=== PATIENT | female | born 1985 | race Caucasian/White ===

== ENCOUNTER 2016-03-22 21:26 | Emergency (ER) | payer MEDICAID ==
[2016-03-23] MEDS ORDERED: HYDROmorphone 1 MG/ML SYRINGE IVP STA (00:31)
[2016-03-23] MEDS ORDERED: HYDROmorphone 1 MG/ML SYRINGE ONE (00:34)
[2016-03-23] MEDS ORDERED: IOPAMIDOL-300 100 ML VIAL IVP ONE (00:37)
[2016-03-23] MEDS ORDERED: HYDROcod/ACETAM 5/325 MG TABLET ONE ×2 (02:00)
[2016-03-23] MEDS ORDERED: HYDROcod/ACETAM 5/325 MG TABLET PO STA (02:00)
== END 2016-03-23 02:18 | disposition home or self-care (01) ==
DX: R10.84 Generalized abdominal pain (principal)
CPT/HCPCS: 36415; 74177; 80053; 81003; 81025; 83690; 85025; 96374; 99283; 99284; A9270; J1170; Q9967

== ENCOUNTER 2016-10-25 20:03 | Emergency (ER) | payer MEDICAID ==
--- NOTE | 2016-10-25 21:11 | XRAY Preliminary Report ---
Exam: XR Ankle 3 View LT IMPRESSION: No bony abnormality. [facility] SITE ID: [id number]
--- NOTE | 2016-10-25 21:14 | XRAY Report ---
EXAM: LEFT ANKLE RADIOGRAPHY EXAM DATE: 10/25/2016 08:41 PM. CLINICAL HISTORY: Rolled ankle yesterday. Increased pain and tenderness with walking. COMPARISON: None. TECHNIQUE: 3 views. FINDINGS: Bones: Normal. No fractures or bone lesions. Joints: Normal. No effusion. No subluxations. The ankle mortise is normally aligned. Soft Tissues: Lateral soft tissue swelling. IMPRESSION: No bony abnormality. [facility] Referring Provider Line: [phone] SITE ID: [id number]
--- NOTE | 2016-10-25 22:46 | ED Physician Documentation ---
PD HPI LOWER EXT INJURY - Stated complaint Stated Complaint: STACIE FOOT INJ - Chief complaint Chief Complaint: General - History obtained from History obtained from: Patient - History of Present Illness PD HPI LOW EXT INJURY LOCATION: Right, Left, Ankle (left), Foot (right) Type of injury: Twist (she was wearing heels and it got caught in grating in the sidewalk and she twisted the left ankle and twisted the right foot as she then fell to the side. Both hurt and has been hard to walk on. She had borrowed crutches and was hurting more to put weight on the foot. Denies other injury.) Where injury occurred: Street (was going out in [place] Tuesday night.) Timing - onset: How many days ago (02/08) Timing - duration: Days Timing - details: Abrupt onset, Still present Improved by: Rest Worsened by: Moving, Palpating, Other (walking) Associated symptoms: Swelling, Discolored (some mild bruising over right foot). 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 : None HEENT: None Psych: None Musculoskeletal: Fibromyalgia, Chronic back pain Derm: None - Past Surgical History Past Surgical History: Yes General: Cholecystectomy /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 TECH/DRAFTSMAN: Tubal ligation, Other HEENT: Tonsil/Adenoidectomy - Present Medications Home Medications: Ambulatory Orders Medication Instructions Recorded Confirmed Omeprazole [PriLOSEC] 40 mg ORAL DAILY 03/22/16 03/22/16 HYDROcod/ACETAM 5/325 [[place] 5/325] 1 - 2 ea PO Q6H PRN #15 tablet 03/23/16 HYDROcod/ACETAM 5/325 [[place] 5/325] 1 tab PO Q6H PRN #15 tablet 10/25/16 - Allergies Allergies/Adverse Reactions: Allergies Allergy/AdvReac Type Severity Reaction Status Date / Time Penicillins Allergy Itching Verified 10/25/16 20:14 aspirin AdvReac Intermediate bruising Verified 10/25/16 20:14 diphenhydramine HCl * AdvReac Intermediate Hives Verified 10/25/16 20:14 [From Benadryl] ibuprofen AdvReac Emesis Verified 10/25/16 20:14 - Social History Does the pt smoke?: Yes Smoking Status: Current every day smoker Does the pt drink ETOH?: Yes Does the pt have substance abuse?: No - Immunizations Immunizations are current?: Yes - POLST Patient has POLST: No PD ED PE NORMAL - Vitals Vital signs reviewed: Yes - General General: Alert and oriented X 3, Well developed/nourished, Other (seems uncomfortable with movement of either foot/ankle. ) - HEENT HEENT: Atraumatic - Back Back: No spinal TTP - Derm Derm: Normal color, Warm and dry - Extremities Extremities: Other (left ankle tender mostly laterally. Achilles firm and intact. No gross laxity on inversion stress but very limited exam due to pain. right churn tender distal lateral aspect over 3-5 MTs. The toes themselves are not tender. Some swelling of the foot. ) - Neuro Neuro: No motor deficit, No sensory deficit Results - Vitals Vitals: Oxygen O2 Source Room air - Rads (name of study) left ankle Radiology: Prelim report reviewed, EMP read contemporaneously (no fracture) right foot Radiology: Prelim report reviewed, EMP read contemporaneously (no fracture) PD MEDICAL DECISION MAKING - ED course Complexity details: reviewed results, considered differential (no fractures. Can use aircast for ankle and post-op shoe for other foot. She has some borrowed crutches and can use them if she decides which side hurts less or if it benefits her. Does not have to be nonweight bearing. ), d/w patient Departure - Departure Disposition: 01 Home, Self Care Clinical Impression: Left ankle sprain Qualifiers: Encounter type: initial encounter Involved ligament of ankle: other ligament Qualified Code(s): S93.492A - Sprain of other ligament of left ankle, initial encounter Right foot sprain Qualifiers: Encounter type: initial encounter Qualified Code(s): S93.601A - Unspecified sprain of right foot, initial encounter Condition: Stable Record reviewed to determine appropriate education?: Yes Instructions: ED Sprain Ankle W X Ray, ED Sprain Foot Follow-Up: Maru Gutierres MD [Provider Admit Priv/Credential] - Prescriptions: HYDROcod/ACETAM 5/325 [[place] 5/325] 1 tab PO Q6H PRN #15 tablet PRN Reason: Pain Comments: Use the ankle brace for the left ankle when up and around and even when sleeping and resting to reduce the motion of the ligaments. Some weightbearing is fine for healing. Progress activity as able. I would suggest a ankle brace for likely 1 or 2 weeks. It can be longer if needed. Tylenol if needed for pain and add hydrocodone if needed. For the right foot, use the firm soled shoe or postop shoe to reduce motion through the midfoot and toes. Progress weightbearing and activity as able. For both I would suggest icing frequently to reduce swelling. Recheck if either or not mostly improved over the next week. Discharge Date/Time: 10/25/16 23:57
[2016-10-25] MEDS ORDERED: HYDROcod/ACETAM 5/325 MG TABLET PO STA (23:28)
[2016-10-25] MEDS ORDERED: HYDROcod/ACETAM 5/325 MG TABLET ONE (23:40)
--- NOTE | 2016-10-25 23:41 | XRAY Preliminary Report ---
Exam: XR Foot 3 View RT IMPRESSION: Normal foot radiography. [facility] SITE ID: [id number]
--- NOTE | 2016-10-25 23:44 | XRAY Report ---
EXAM: RIGHT FOOT RADIOGRAPHY EXAM DATE: 10/25/2016 11:26 PM. CLINICAL HISTORY: Right foot twisting injury. Pain base of [facility] area. COMPARISON: None. TECHNIQUE: 3 views. FINDINGS: Bones: Normal. No fractures or bone lesions. Joints: Normal. No subluxations. Soft Tissues: Normal. No soft tissue swelling. IMPRESSION: Normal foot radiography. [facility] Referring Provider Line: [phone] SITE ID: [id number]
[2016-10-25 23:58] VITALS: BP 128/80
== END 2016-10-25 23:57 | disposition home or self-care (01) ==
LOC: ED 20:03
DX: S93.492A Sprain of other ligament of left ankle, initial encounter (principal); S93.601A Unspecified sprain of right foot, initial encounter; W23.1XXA Caught, crushed, jammed, or pinched between stationary objects, initial encounter; X50.1XXA Overexertion from prolonged static or awkward postures, initial encounter; Y92.480 Sidewalk as the place of occurrence of the external cause; F17.200 Nicotine dependence, unspecified, uncomplicated
CPT/HCPCS: 73610; 73630; 99283; A9270

== ENCOUNTER 2020-02-14 16:51 | Emergency (ER) | payer MEDICAID ==
[2020-02-14 17:18] LABS: BILIRUBIN,URINE NEGATIVE (NEGATIVE); GLUCOSE, URINE (UA) NEGATIVE (NEGATIVE); KETONES,URINE (UA) NEGATIVE (NEGATIVE); LEUKOCYTE ESTERASE, URINE NEGATIVE (NEGATIVE); NITRITE,URINE NEGATIVE (NEGATIVE); OCCULT BLOOD,URINE NEGATIVE (NEGATIVE); PROTEIN,URINE NEGATIVE (NEGATIVE); UROBILINOGEN,URINE 0.2 (NORMAL) E.U./dL (NORMAL)
[2020-02-14 17:26] LABS: CLARITY,URINE CLEAR (CLEAR); HCG UR QUAL NEGATIVE
[2020-02-14] MEDS ORDERED: HYDROmorphone 1 MG/ML CARPUJECT IM STA ×2 (17:57→19:46)
[2020-02-14] MEDS ORDERED: KETOROLAC 60 MG/2 ML VIAL IM STA (17:57)
[2020-02-14 18:17] LABS: BASOPHILS % (AUTO) 0.2 %; EOSINOPHILS % (AUTO) 0.4 %; HGB - HEMOGLOBIN 16.5 g/dL (12.0-16.0); LYMPHOCYTES # (AUTO) 1.2 10^3/uL (1.5-3.5); MEAN CORPUSCULAR HEMOGLOBIN 34.6 pg (27.0-31.0); MEAN CORPUSCULAR HGB CONC 34.5 g/dL (32.0-36.0); MEAN CORPUSCULAR VOLUME 100.2 fL (81.0-99.0); MEAN PLATELET VOLUME 9.8 fL (7.9-10.8); MONOCYTES # (AUTO) 0.4 10^3/uL (0.0-1.0); NEUTROPHILS # (AUTO) 8.2 10^3/uL (1.5-6.6); NEUTROPHILS % (AUTO) 83.1 %; PLT - PLATELET COUNT 319 10^3/uL (130-450); RED BLOOD COUNT 4.77 10^6/uL (4.20-5.40); RED CELL DISTRIBUTION WIDTH 12.3 % (12.0-15.0); WHITE BLOOD COUNT 9.8 x10^3/uL (4.8-10.8)
[2020-02-14 18:33] LABS: ALBUMIN 4.3 g/dL (3.2-5.5); ALBUMIN/GLOBULIN RATIO 1.3 (1.0-2.2); BILIRUBIN,TOTAL 0.5 mg/dL (0.2-1.0); CALCIUM 9.1 mg/dL (8.5-10.3); CREATININE 0.7 mg/dL (0.4-1.0); TOTAL PROTEIN 7.6 g/dL (6.7-8.2)
--- NOTE | 2020-02-14 19:27 | ED Physician Documentation ---
History of Present Illness - Stated complaint Stated Complaint: STEPHANIE/RT BACK PX - Chief complaint Chief Complaint: Abd Pain - History obtained from History obtained from: Patient - Additonal information Additional information: Patient comes emergency department chief complaint of right flank pain for the last 4 days. She also complains of nausea. Patient states she has had some chills but no fever. No vomiting. Patient states she has a history of a right- sided kidney cyst, but no history of urinary calculi. She has not had any dysuria. No anterior abdominal pain. No chest pain, cough, or shortness of breath. No other complaints at this time. No back injury. Review of Systems Ten Systems: 10 systems reviewed and negative Constitutional: reports: Reviewed and negative Eyes: reports: Reviewed and negative Ears: reports: Reviewed and negative Nose: reports: Reviewed and negative Throat: reports: Reviewed and negative Cardiac: reports: Reviewed and negative Respiratory: reports: Reviewed and negative GI: reports: Abdominal Pain (R flank) : reports: Reviewed and negative Skin: reports: Reviewed and negative Musculoskeletal: reports: Back pain (R CVA) Neurologic: reports: Reviewed and negative Psychiatric: reports: Reviewed and negative Endocrine: reports: Reviewed and negative Immunocompromised: reports: Reviewed and negative PD PAST MEDICAL HISTORY - Past Medical History Past Medical History: Yes Cardiovascular: None Respiratory: None Endocrine/Autoimmune: None 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 : None HEENT: None Psych: None Musculoskeletal: Fibromyalgia, Chronic back pain Derm: None - Past Surgical History Past Surgical History: Yes General: 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: Tubal ligation, Other HEENT: Tonsil/Adenoidectomy - Present Medications Home Medications: Ambulatory Orders Medication Instructions Recorded Confirmed HYDROcod/ACETAM 5/325 [[place] 5/325] 1 - 2 ea PO Q6H PRN #15 tablet 02/14/20 Ondansetron Odt [Zofran] 4 mg TL Q6H PRN #10 tablet 02/14/20 - Allergies Allergies/Adverse Reactions: Allergies Allergy/AdvReac Type Severity Reaction Status Date / Time Penicillins Allergy Itching Verified 02/14/20 16:57 aspirin AdvReac Intermediate bruising Verified 02/14/20 16:57 diphenhydramine HCl * AdvReac Intermediate Hives Verified 02/14/20 16:57 [From Benadryl] ibuprofen AdvReac Emesis Verified 02/14/20 16:57 - Social History Does the pt smoke?: Yes Smoking Status: Current every day smoker Does the pt drink ETOH?: Yes Does the pt have substance abuse?: No - Immunizations Immunizations are current?: Yes - POLST Patient has POLST: No PD ED PE NORMAL - Vitals Vital signs reviewed: Yes - General General: Alert and oriented X 3, No acute distress (The patient appears mildly uncomfortable.), Well developed/nourished - HEENT HEENT: Atraumatic, PERRL, EOMI, Moist mucous membranes - Neck Neck: Supple, no meningeal sign - Cardiac Cardiac: RRR, No murmur, Strong equal pulses - Respiratory Respiratory: No respiratory distress, Clear bilaterally - Abdomen Abdomen: Soft, Non distended, Other (Right flank tenderness. No tenderness in the anterior abdomen.) - Back Back: No spinal TTP, Other (Moderate right CVA tenderness.) - Derm Derm: Normal color, Warm and dry, No rash - Extremities Extremities: No deformity, No edema, No calf tenderness / cord - Neuro Neuro: Alert and oriented X 3 - Psych Psych: Normal mood, Normal affect Results - Vitals Vitals: Vital Signs - 24 hr 02/14/20 16:57 Temperature 36.6 C Heart Rate 93 Respiratory 16 Rate Blood Pressure 132/72 H O2 Saturation 98 Oxygen O2 Source Room air - Labs Labs: Laboratory Tests 02/14/20 02/14/20 02/14/20 17:12 18:12 18:12 WBC 9.8 RBC 4.77 Hgb 16.5 H Hct 47.8 H MCV 100.2 H MCH 34.6 H MCHC 34.5 RDW 12.3 Plt Count 319 MPV 9.8 Neut # (Auto) 8.2 H Lymph # (Auto) 1.2 L [place] # (Auto) 0.4 Eos # (Auto) 0.0 Baso # (Auto) 0.0 Absolute Nucleated RBC 0.00 Nucleated RBC % 0.0 Sodium 137 Potassium 4.0 Chloride 101 Carbon Dioxide 24 Anion Gap 12.0 BUN 10 Creatinine 0.7 Estimated GFR (MDRD) 94 Glucose 111 H Calcium 9.1 Total Bilirubin 0.5 AST 21 ALT 14 Alkaline Phosphatase 58 Total Protein 7.6 Albumin 4.3 Globulin 3.3 Albumin/Globulin Ratio 1.3 Lipase 17 L Urine Color YELLOW Urine Clarity CLEAR Urine pH 6.0 Ur Specific [place] 1.010 Urine Protein NEGATIVE Urine Glucose (UA) NEGATIVE Urine Ketones NEGATIVE Urine Occult Blood NEGATIVE Urine Nitrite NEGATIVE Urine Bilirubin NEGATIVE Urine Urobilinogen 0.2 (NORMAL) Ur Leukocyte Esterase NEGATIVE Ur Microscopic Review NOT INDICATED Urine Culture Comments NOT INDICATED Urine HCG, Qual NEGATIVE PD MEDICAL DECISION MAKING - ED course Complexity details: reviewed results, re-evaluated patient, considered differential, d/w patient ED course: The patient was worked up with labs, urinalysis, and CT scan of the abdomen pelvis without contrast. Urinalysis and labs were unremarkable. The patient was treated symptomatically with IM Dilaudid and Toradol, after which she was f ound to be feeling better. The patient was pending CT scan at the time of this dictation. She was signed out to Dr. Mireles, pending CT scan and final disposition. Departure - Departure Clinical Impression: Flank pain Back pain Qualifiers: Back pain location: low back pain Chronicity: acute Back pain laterality: right Sciatica presence: without sciatica Qualified Code(s): M54.5 - Low back pain Instructions: ED Flank Pain Uncertain Cause Prescriptions: HYDROcod/ACETAM 5/325 [[place] 5/325] 1 - 2 ea PO Q6H PRN #15 tablet PRN Reason: Pain Ondansetron Odt [Zofran] 4 mg TL Q6H PRN #10 tablet PRN Reason: Nausea / Vomiting Comments: Your labs, CT scan, and urinalysis all look exactly clear what is causing the pain you are having. Most likely, this is due to a benign process, and will pass on its own. You may take the medication for pain and nausea, as needed. Please follow-up with your primary care physician if you are not feeling better after the next week.
[2020-02-14] MEDS ORDERED: ONDANSETRON ODT 4 MG TABLET TL STA (19:46)
--- NOTE | 2020-02-14 20:19 | CT Report ---
PROCEDURE: Abdomen/Pelvis WO INDICATIONS: R flank pain TECHNIQUE: Noncontrast 5 mm thick sections acquired from the diaphragms to the symphysis. 5 mm coronal and sagi ttal reformats were then performed. For radiation dose reduction, the following was used: automated exposure control, adjustment of mA and/or kV according to patient size. COMPARISON: 03/23/2016 FINDINGS: Image quality: Excellent. ABDOMEN: Lung bases: Lung bases are clear. Heart size is normal. Solid organs: Liver and spleen are normal in size. Gallbladder is surgically absent Pancreas is no rmal in contours. No adrenal nodules. Kidneys are normal in size, without hydronephrosis or nephrol ithiasis. There are several calcifications along the expected course of the bilateral distal ureters, which is not directly visualized. Peritoneum and bowel: Unenhanced bowel loops demonstrate normal wall thickness and caliber. No free fluid or air. Normal appendix. Nodes and vessels: No retroperitoneal or mesenteric adenopathy by size criteria. Aorta and inferior vena cava are normal in caliber. Miscellaneous: No ventral hernias. PELVIS: Genitourinary: Urinary bladder is decompressed. Miscellaneous: No inguinal hernias or adenopathy. Bones: No suspicious bony lesions. No vertebral body compression fractures. IMPRESSION: 1. No evidence of renal calcification or hydronephrosis. 2. Small nonobstructing distal bilateral ureteral calculi cannot be excluded. 3. Normal appendix. Reviewed by: Bianca Busch MD on 02/14/2020 8:18 PM PST Approved by: Bianca Busch MD on 02/14/2020 8:18 PM PST Station ID: [id number]
--- NOTE | 2020-02-14 20:53 | ED Physician Documentation ---
ED Addendum - Addendum Addendum: 02/14/20 20:52 Patient endorsed to me by Dr. Cruz. She is in no acute distress at this time. CT negative. will dc home with return precautions. Follow up with your primary doctor.
[2020-02-14] MEDS ORDERED: HYDROcod/ACET 5/325 Prepack 4 PO STA (21:09)
[2020-02-14 21:16] VITALS: BP 119/58
--- OUTSIDE RECORDS SUMMARY | 2020-02-20 01:19 | EXTERNAL MEDICAL SUMMARY RPT | Continuity of Care Document ---
:1985 Demographics Phone Unavailable Preferred Language Unknown Marital Status Unknown Islam Affiliation Unknown Race Unknown Ethnic Group Unknown Author Organization [place] Address [address] [place] [address] Phone Care Team Providers Name Role Phone [place] Unavailable Unavailable Provider Unavailable Unavailable Problems date description facility 2012-08-08 17:59 OTHER CHRONIC PAIN [facility] 2012-08-08 17:59 BACKACHE NOS [facility] 2012-08-08 17:59 MYALGIA AND MYOSITIS NOS [facility] 2012-08-08 17:59 CHEST PAIN NOS [facility] 2012-08-08 17:[address] [facility] 2013 13:03 NONINF GASTROENTERIT [facility] 2013 13:03 DIZZINESS AND GIDDINESS [facility] 2013-05-08 14:45 PERIAPICAL ABSCESS [facility] 2013-05-08 14:45 HEADACHE [facility] 2013-10-23 13:24 ACUTE LARYNGITIS W/O OBSTRUCTION [facility] 2013-10-23 13:24 ACUTE BRONCHITIS [facility] 2013-10-23 13:24 VOMITING ALONE [facility] 2013-10-23 13:24 HX-CERVICAL MALIGNANCY [facility] 2013-11-24 10:[address] [facility] 2013-11-24 10:55 TOBACCO USE DISORDER [facility] 2013-11-24 10:55 ACUTE LARYNGITIS W/O OBSTRUCTION [facility] 2013-11-24 10:55 ACUTE URI NOS [facility] 2013-11-24 10:55 RESPIRATORY ABNORM [facility] 2014-01-23 11:53 TOBACCO USE DISORDER [facility] 2014-01-23 11:53 ACUTE URI NOS [facility] 2014-01-23 11:53 ESOPHAGEAL REFLUX [facility] [place] 2014-01-23 11:53 LUMBAGO [facility] 2014-01-23 11:53 SPRAIN OF BACK NOS [facility] 2014-01-23 11:53 ACCIDENT NOS [facility] 2014-01-23 11:53 HX-PENICILLIN ALLERGY [facility] dical [place] 2014-05-21 18:09 TOBACCO USE DISORDER [facility] 2014-05-21 18:09 LUMBAGO [facility] [place] 2014-05-21 18:09 BACKACHE NOS [facility] [place] 2014-11-10 21:27 GASTRO-ESOPHAGEAL REFLUX DISEASE [facility] WITHOUT ESOPHAGITIS 2014-11-10 21:27 [facility] [place] 2014-11-10 21:27 SPRAIN OF LIGAMENTS OF THORACIC [facility] SPINE, INITIAL ENCOUNTER 2014-11-10 21:27 EXPOSURE TO OTHER SPECIFIED [facility] [place] FACTORS, INITIAL ENCOUNTER 2014-11-10 21:27 TOBACCO USE [facility] 2015-02-13 18:25 NICOTINE DEPENDENCE, UNSPECIFIED, [facility] UNCOMPLICATED 2015-02-13 18:25 PELVIC AND PERINEAL PAIN [facility] 2015-10-24 19:28 NICOTINE DEPENDENCE, UNSPECIFIED, [facility] UNCOMPLICATED 2015-10-24 19:28 OTHER CHRONIC PAIN [facility] 2015-10-24 19:28 GASTRO-ESOPHAGEAL REFLUX DISEASE [facility] WITHOUT ESOPHAGITIS 2015-10-24 19:28 DORSALGIA, UNSPECIFIED [facility] 2015-10-24 19:28 FIBROMYALGIA [facility] 2015-10-24 19:28 EPIGASTRIC PAIN [facility] 2015-10-24 19:28 NAUSEA WITH VOMITING, UNSPECIFIED [facility] 2016-03-22 21:26 GENERALIZED ABDOMINAL PAIN [facility] 2016-03-22 21:26 ABDOMINAL DISTENSION (GASEOUS) [facility] 2016-10-25 20:03 NICOTINE DEPENDENCE, UNSPECIFIED, [facility] UNCOMPLICATED 2016-10-25 20:03 SPRAIN OF OTHER LIGAMENT OF LEFT [facility] ANKLE, INITIAL ENCOUNTER 2016-10-25 20:03 UNSPECIFIED SPRAIN OF RIGHT FOOT, [facility] INITIAL ENCOUNTER 2016-10-25 20:03 UNSPECIFIED INJURY OF LEFT FOOT, [facility] INITIAL ENCOUNTER 2016-10-25 20:03 CAUGHT, CRUSH, JAMMED, OR PINCHED [facility] BETW STATIONRY OBJ, INIT 2016-10-25 20:03 OVEREXERTION FROM PROLONGED STATIC [facility] OR AWKWARD POSTURES, INIT 2016-10-25 20:[address] OF [facility] OCCURRENCE OF THE EXTERNAL CAUSE Allergies date description facility [facility] tape [facility] NO KNOWN ALLERGIES [facility] NO ALLERGY INFORMATION AVAILABLE [facility] NO KNOWN ALLERGIES [facility] CIMETIDINE [facility] RANITIDINE HCL [facility] AMLODIPINE [facility] METFORMIN [facility] LOSARTAN [facility] LISINOPRIL [facility] BEE VENOM PROTEIN (HONEY BEE) [facility] VARNER FLAVOR [facility] ERYTHROMYCIN [facility] diphenhydramine HCl * [facility] cephalexin monohydrate * [facility] Penicillins [facility] aspirin [facility] ibuprofen [facility] amlodipine [facility] flecainide [facility] AMOXICILLIN [facility] AMOXICILLIN [facility] Results Social History date description facility [id number]
== END 2020-02-14 21:17 | disposition home or self-care (01) ==
LOC: ED 16:51
DX: R10.9 Unspecified abdominal pain (principal); M54.5 Low back pain; R11.0 Nausea; F17.200 Nicotine dependence, unspecified, uncomplicated; Z20.822 Contact with and (suspected) exposure to COVID-19
CPT/HCPCS: 36415; 74176; 80053; 81003; 81025; 83690; 85025; 87635; 96372; 99284; J1170; Q0162; 81001; 87086